=== PATIENT | female | born 1975 | race Caucasian/White ===

== ENCOUNTER 2018-01-01 22:36 | Emergency (ER) | payer SELFPAY ==
[~2018-01-01] VITALS: Ht 170.2 cm; Wt 71.0 kg
[~2018-01-01 22:36] MED LIST: IRON325T2 OR; LORTA5 PO; PRENTAB72 PO
[2018-01-01 23:53] VITALS: BP 138/76; PULSE 78; RESP 16; TEMP 98.6; O2SAT 100
[2018-01-02] MEDS ORDERED: LIDOCAINE 1%/EPINEPHrine 1:100,000 SOLN 30 ML VIAL ONE (00:52)
[2018-01-02] MEDS ORDERED: BACT800T5 PO (01:45)
--- NOTE | 2018-01-02 01:45 | PD ---
HPI Chief Complaint: Skin Problem Time Seen by Provider: 00:03 Travel History International Travel<30 days: No Contact w/Intl Traveler<30days: No Traveled to known affect area: No History of Present Illness HPI 42-year-old woman with a history of recurrent soft tissue abscesses presents with soft tissue abscess on her right buttock. She states that this started a couple days ago. Is been worsening. It is draining some. Similar to previous symptoms. No fevers. History Past Medical History Medical History: Denies Significant Hx Tetanus Vaccination: < 5 Years Influenza Vaccination: No LMP: 12/07/17 Past Surgical History Surgical History: No Previous Surgery Social History Alcohol Use: Yes (5 bottles of wine per week) Tobacco Use: Yes (1PPD) Allergies-Medications (Allergen,Severity, Reaction): Coded Allergies: No Known Allergies (Unverified , 08/24/12) Reported Meds & Prescriptions Reported Meds & Active Scripts Active No Active Prescriptions or Reported Medications Review of Systems Except as stated in HPI: all other systems reviewed are Neg Physical Exam Narrative GENERAL: Well-appearing 6-year-old woman, no acute distress. SKIN: Warm and dry. CARDIOVASCULAR: Warm and well perfused. RESPIRATORY: Normal rate and effort. MUSCULOSKELETAL: Small area of fluctuance with surrounding induration in the right buttock. Some spontaneous drainage. Very tender. NEUROLOGICAL: Awake and alert. No gross deficits. Data Data Last Documented VS Vital Signs Date Time Temp Pulse Resp B/P (MAP) Pulse Ox O2 Delivery O2 Flow Rate FiO2 01/01/18 23:53 98.6 78 16 138/76 (96) 100 Orders Orders Lidocai-Epi 1%-1:100,000 Inj (Xylocaine- (01/02/18 00:52) MDM Medical Decision Making Medical Screen Exam Complete: Yes Emergency Medical Condition: Yes Differential Diagnosis Abscess, cellulitis, other Narrative Course 6-year-old woman with abscess. Drained at the bedside uneventfully. Will place on Bactrim. Procedures Procedure Narrative INCISION AND DRAINAGE OF ABSCESS: The area was prepped and was sterilely draped. A subcutaneous wheal of % Xylocaine 1 with a total number 4 mL was used to anesthetize the area. The area was properly anesthetized. A number 11 scalpel was used to make a 1-cm incision across the area of the abscess. Pus was drained. Hemostats were used to break up loculations. Patient tolerated well. Diagnosis Primary Impression: Abscess Patient Instructions: General Instructions Additional Instructions: Take Bactrim as prescribed. Use ibuprofen as needed for pain. Continue hot baths or warm compresses several times daily to encourage drainage. Return to the emergency department for any new or worsening symptoms. Med/Other Pt SpecificInfo: Prescription(s) given Scripts Sulfamethoxazole-Trimethoprim (Bactrim DS) 800-160 Mg Tab 1 TAB PO BID for Infection, #14 TAB 0 Refills Prov: Jake Rueda MD 01/02/18 Disposition: DISCHARGE HOME Condition: Stable Jake Rueda MD Jan 02, 2018 01:45
== END 2018-01-02 02:08 | disposition home or self-care (01) ==
LOC: NEPE 22:36
DX: L02.31 Cutaneous abscess of buttock (principal); F17.200 Nicotine dependence, unspecified, uncomplicated
CPT/HCPCS: 10060